=== PATIENT | male | born 1955 | race Caucasian/White ===

== ENCOUNTER → 2018-11-18 09:19 | Outpatient (CLI) | payer BC, SELFPAY ==
--- NOTE | 2018-11-18 | DI.ECHO.S_ITS ---
[facility] +---------+ [facility] +---------+ : : [address] : : : : [id number] : : : : Phone: [phone]+ Echocardiogram Report + + :Name: THELMA CHAN Study Date: 11/18/2018 Height: 72 in : :[facility] Weight: 206 lb : : Gender: Male BSA: 2.2 m2 : :: 1955 Age: 63 yrs BP: 120/80 mmHg: :Reason For Study: Atrial fibrillation : : Performed By: Serenity Ortiz : :Referring: ZACHARY IVY : + + Interpretation Summary The patient was in atrial fibrillation with heart rates between 77-93 bpm during the exam. Normal left ventricle size with ejection fraction 55-60%. Severely dilated left atrium. Mildly dilated right atrium. No valvular abnormality. Mildly dilated aortic root and ascending aorta. Procedure: A two-dimensional transthoracic echocardiogram with color flow and Doppler was performed. The study quality was technically adequate. There is no prior echocardiogram noted for this patient. The patient was in atrial fibrillation with heart rates between 77-93 bpm during the exam. Left Ventricle: The left ventricle is normal in size. There is normal left ventricular wall thickness. The ejection fraction is estimated to be 55-60%. There are no focal wall motion abnormalities. Diastolic function could not be accurately assessed due to atrial fibrillation. Right Ventricle: The right ventricle grossly appears normal in size with probable normal systolic function. Atria: The left atrium is severely dilated. The right atrium is mildly dilated. The interatrial septum is intact with no evidence for an atrial septal defect. Mitral Valve: The mitral valve is normal in structure and function. There is no mitral regurgitation noted. Aortic Valve: The aortic valve is trileaflet. The aortic valve opens well. No aortic regurgitation is present. Tricuspid Valve: The tricuspid valve is normal in structure and function. There is a trace or physiologic amount of tricuspid regurgitation. The right ventricular systolic pressure is estimated to be at least 22 mmHg based on an estimated right atrial pressure of 3 mm Hg. Pulmonic Valve: The pulmonic valve is not well seen, but is grossly normal. There is mild pulmonic regurgitation. Great Vessels: The aortic root is mildly dilated. The ascending aorta is mildly enlarged. The aortic arch is at the upper limits of normal in size. The IVC is of normal diameter and collapses greater than 50% with a sniff. This suggests a low right atrial pressure of 3 mm Hg. Pericardium/ Pleura There is no pericardial effusion. There is no pleural effusion. MMode/2D Measurements & Calculations LVIDd: 4.8 cm Ao root diam: 3.9 cm LVIDs: 3.6 cm Aortic Jxn: 3.3 cm FS: 24.8 % asc Aorta Diam: 3.7 cm EPSS: 0.66 cm Ao Arch Diam (Prox Trans): 3.3 cm IVSd: 1.0 cm LVPWd: 0.96 cm LV childers. diameter/BSA (cm/m^2): 2.2 LV sys. diameter/BSA (cm/m^2): 1.7 LA dimension: 4.8 cm RA long axis: 6.3 cm LA A2 area: 29.8 cm2 RA area: 25.0 cm2 LA A4 area: 27.9 cm2 RA vol: 85.0 ml LA length (vol): 6.3 cm RA : 39.4 ml/m2 LA vol: 112.4 ml RVDd major: 6.2 cm LA vol index: 52.1 ml/m2 RVD1 (basal): 3.2 cm LA Length_phl: 6.3 cm RVD2 (mid): 2.7 cm Doppler Measurements & Calculations Ao V2 max: 117.3 cm/sec MV P1/2t: 62.8 msec Ao V2 mean: 78.9 cm/sec Ao max P.5 mmHg Ao mean P.8 mmHg Ao V2 VTI: 21.9 cm TR max leonardo: 220.5 cm/sec MV P1/2t max leonardo: 60.1 cm/sec TR max P.4 mmHg MVA(P1/2t): 3.5 cm2 PA V2 max: 74.2 cm/sec PA V2 mean: 52.7 cm/sec PA mean P.2 mmHg PA Accel Time: 0.16 sec Electronically signed by: Shavon Camara on Reading Physician:11/18/2018 10:57 AM
== END ==
PROVIDERS: PCP Family Medicine; Visit Provider Family Medicine
DX: I37.1 Nonrheumatic pulmonary valve insufficiency (principal); I48.91 Unspecified atrial fibrillation
CPT/HCPCS: 93306